=== PATIENT | female | born 1955 | race Caucasian/White ===

== ENCOUNTER → 2016-10-01 | Outpatient (CLI) | payer BC | END | disposition home or self-care (01) | LOC: GMAL 10:49 | PROVIDERS: ATTEND Family Medicine | DX: Z00.00 Encounter for general adult medical examination without abnormal findings (principal) ==

== ENCOUNTER 2017-01-21 05:39 | Day surgery (SDC) | payer BC ==
--- NOTE | 2017-01-19 19:05 | SSS ---
CHIEF COMPLAINT: Need for screening colonoscopy. HISTORY OF PRESENT ILLNESS: Ms. Hicks is a 61 year-old female who presents for routine followup to my office. It was noted that it had been approximately 10 years since her last colonoscopy. Her last colonoscopy was in August of 2006 and was normal. She has no symptoms referable to her bowels, no abdominal pain, blood in her stool, changes in her bowel habits or weight loss. Risks and benefits were discussed and she is agreeable to proceeding. PAST MEDICAL HISTORY: 1. Allergies. 2. Migraine headaches. 3. Osteoarthritis primarily affecting the neck and fingers. 4. History of cerebrovascular accident with right leg hemiparesis that was mild and improved after several days back in March of 2015. 5. Nuclear stress test in January 2015 that showed an ejection fraction of 54% with a fixed hypoperfusion defect with anterior left ventricle that likely represents artifact. 6. Myalgias with Lipitor and Pravastatin. PAST SURGICAL HISTORY: 1. Cholecystectomy. 2. Colonoscopy in August of 2006. CURRENT MEDICATIONS: 1. Fosamax weekly. 2. Maxalt p.r.n. migraine headaches. 3. Fexofenadine 180 mg p.r.n. FAMILY HISTORY: Father had a history of lung cancer. She has no brothers. She has 3 sisters, Yessenia Moreno, Genie Albert with rheumatoid arthritis and fibromyalgia, and Priyanka Hernadez who is healthy. She had a maternal aunt who from breast cancer. SOCIAL HISTORY: She is . She is a high school graduate. She smoked about a half a pack per day for 10 years but is not smoking currently. REVIEW OF SYSTEMS: Negative except as per History of Present Illness. PHYSICAL EXAMINATION: VITAL SIGNS: Height 5' 4", weight 160. Blood pressure 120/64, pulse 82, respirations 14. GENERAL: She is awake and alert in no acute distress. HEENT: Unremarkable. NECK: Supple. CHEST: Lungs are clear. CARDIOVASCULAR: Regular rate and rhythm. ABDOMEN: Soft, non-tender. EXTREMITIES: Without edema. NEUROLOGIC: Nonfocal. RECTAL: Exam is deferred until time of colonoscopy. ASSESSMENT: 1. Need for screening colonoscopy. PLAN: Colonoscopy on 01/21/17. #[id number] [id number]
[2017-01-21] MEDS ORDERED: LACTATED RINGERS 1,000 ML ONE (06:38)
[2017-01-21] MEDS ORDERED: fentaNYL CITRATE INJ 50 MCG/ML AMP IV ONE (07:27)
[2017-01-21] MEDS ORDERED: MIDAZOLAM INJ 5 MG/5 ML VIAL IV ONE (07:27)
[2017-01-21 08:22] VITALS: TEMP 97.3
--- NOTE | 2017-01-21 09:05 | OP ---
DATE OF PROCEDURE: 01/21/17 PREOPERATIVE DIAGNOSIS: 1. Screening colonoscopy. POSTOPERATIVE DIAGNOSIS: 1. Few large left sided diverticula. 2. 0.25 x 0.25 cm polyp versus fold in the proximal descending colon. 3. Otherwise normal colonoscopy to the cecum. The terminal ileum could not be entered. PROCEDURE: 1. Colonoscopy. SURGEON: Hubert Olson MD. ESTIMATED BLOOD LOSS: Less than 1 mL. COMPLICATIONS: No immediate complications. ANESTHESIA: Propofol 500 mg, fentanyl 1 cc, Versed 1 mg administered intravenously by Juan Hart CRNA, using monitored anesthesia care. TECHNIQUE: After informed consent was obtained from the patient, the patient was taken to the Endoscopy Suite and placed in the left lateral decubitus position. Vital signs were monitored throughout the procedure. Supplemental oxygen was administered throughout the procedure. After adequate conscious sedation was obtained, digital rectal examination was performed, which was unremarkable other than some large external skin tags. The colonoscope was then advanced into the patient's rectum and up through the sigmoid, descending, transverse and ascending colon to the level of the cecum. The terminal ileum could not be entered. The appendiceal orifice was photographed. The cecum was photographed. Overall, the bowel prep was quite good. There were a few areas of liquid stool and great care was taken to try to suction out as much of this as possible. The colonoscope was then slowly withdrawn, taking great care to try to visualize all gracia of the colon in 360 degree fashion. However, in the hepatic flexure, there was a significant amount of looping and I went in and out of this area at least three times to try to get a good look. Nevertheless, there was about a 5 to 10 cm stretch that was difficult to fully visualize. I feel confident that there were no large lesions in this area, however. Throughout the rest of the colon, there was no looping experienced. In the proximal descending colon, there was a very small polyp versus fold that was biopsied times three to presumed obliteration. Hemostasis was noted. The colonoscope was further withdrawn and in the lower descending and sigmoid region , several large diverticula were noted. In the rectum, the colonoscope was retroflexed upon itself. Grade 2 internal hemorrhoids were noted. The colonoscope was then unretroflexed and air was suctioned out of the patient's rectum. The colonoscope was removed from the patient. The patient tolerated the procedure well and was taken back to the recovery area in good condition. PLAN: Followup in my office in seven to ten days. She will need a repeat colonoscopy pending the path report, but it will be unlikely to be before five years. #[id number] JUAN JOSE
[2017-01-21 09:32] VITALS: BP 134/82; O2SAT 100
[2017-01-21] MEDS ORDERED: LIDOCAINE 1% 10 ML VIAL INJ ONE (12:00)
[2017-01-21] MEDS ORDERED: PROPOFOL 200 MG/20 ML VIAL IV ONE (12:00)
== END 2017-01-21 09:05 | disposition home or self-care (01) ==
LOC: AMB 05:39
PROVIDERS: ATTEND Family Medicine
DX: Z12.11 Encounter for screening for malignant neoplasm of colon (principal); D12.4 Benign neoplasm of descending colon; Z79.82 Long term (current) use of aspirin; Z79.899 Other long term (current) drug therapy; K57.30 Diverticulosis of large intestine without perforation or abscess without bleeding; K64.1 Second degree hemorrhoids
CPT/HCPCS: 00810; 45380; J2250; J3010; J3490; J7120

== ENCOUNTER → 2017-09-26 | Outpatient (CLI) | payer BC | LOC: LAB.O 14:44 | PROVIDERS: ATTEND Family Medicine | DX: M79.7 Fibromyalgia (principal); M25.50 Pain in unspecified joint; R53.82 Chronic fatigue, unspecified ==

== ENCOUNTER → 2020-08-06 | Outpatient (CLI) | payer BC, MEDICARE | LOC: GMAF 18:02 | PROVIDERS: ATTEND Nurse Practitioner Family | DX: R39.15 Urgency of urination (principal) ==